=== PATIENT | female | born 1975 | race African-American/Black ===

== ENCOUNTER 2019-03-24 11:31 | Outpatient (CLI) | payer OTHER ==
--- NOTE | 2019-03-24 11:49 | RAD ---
XR Shoulder Lt 3 View STANDARD History: M 27.512 pain in left shoulder Comparison: None. Findings: No acute fracture or malalignment. Visualized ribs are intact. Left lung is clear. Impression: No acute osseous abnormality.
== END 2019-03-24 11:32 | disposition home or self-care (01) ==
LOC: SCSRAD 11:31
PROVIDERS: ATTEND Internal Medicine
DX: M25.512 Pain in left shoulder (principal)

== ENCOUNTER 2020-04-04 16:28 | Emergency (ER) | payer OTHER, SELFPAY ==
[2020-04-05 13:32] LABS: SARS-CoV-2 MS2 Positive; SARS-CoV-2 N Gene Negative; SARS-CoV-2 S Gene Negative; SARS-CoV-2 by NAA Not Detected (NotDetected); SARS-CoV-2 orf1ab Negative
== END 2020-04-04 17:20 | disposition home or self-care (01) ==
LOC: ERS 16:28
DX: R05 Cough (principal); J02.9 Acute pharyngitis, unspecified; R09.81 Nasal congestion; R52 Pain, unspecified; Z20.828 Contact with and (suspected) exposure to other viral communicable diseases; E03.9 Hypothyroidism, unspecified; Z79.899 Other long term (current) drug therapy
CPT/HCPCS: 87635; 99283; U0003

== ENCOUNTER 2023-09-20 15:20 | Outpatient (CLI) | payer BC | END 2023-09-20 15:21 | disposition home or self-care (01) | LOC: BICMAMMO 15:20 | PROVIDERS: ATTEND Family Medicine | DX: Z12.31 Encounter for screening mammogram for malignant neoplasm of breast (principal); N63.25 Unspecified lump in the left breast, overlapping quadrants | CPT/HCPCS: 77063; 77067 ==

== ENCOUNTER 2023-09-27 09:11 | Outpatient (CLI) | payer BC | END 2023-09-27 09:12 | disposition home or self-care (01) | LOC: BICMAMMO 09:11 | PROVIDERS: ATTEND Family Medicine | DX: N63.25 Unspecified lump in the left breast, overlapping quadrants (principal) | CPT/HCPCS: G0279 ==